=== PATIENT | male | born 1985 | race Caucasian/White ===

== ENCOUNTER 2021-04-15 14:13 | Emergency (ER) | payer SELFPAY ==
[~2021-04-15] VITALS: Ht 188 cm; Wt 81.6 kg
[2021-04-15] MEDS ORDERED: MECLIZINE 25 MG (ANTIVERT) TAB PO ONE (14:30)
--- NOTE | 2021-04-15 14:30 | ED General ---
General Chief Complaint: General Problems/Pain Stated Complaint: GONZALEZ,HIGH BP,DIZZY Source of Information: Patient Exam Limitations: No Limitations History of Present Illness Date Seen by Provider: Apr 15, 2021 Time Seen by Provider: 14:28 Initial Comments To ER with reports of a headache, nausea, dizziness. Symptoms began on 04/13/2020 with a headache. He gets these frequently but typically they go away with some Tylenol Motrin. The headache did go away but he then developed some nausea and then persistent dizziness. Denies any headache currently. No fevers or chills. Timing/Duration: 1-2 Days Severity: Moderate Associated Systoms: Headaches, Nausea/Vomiting Allergies and Home Medications Allergies Coded Allergies: No Known Drug Allergies (Unverified , 04/15/21) Patient Home Medication List Home Medication List Reviewed: Yes Meclizine HCl (Meclizine HCl) 25 Mg Tablet, 25 MG PO TID PRN for DIZZINESS Prescribed by: JI BARCLAY on 04/15/21 153 Prednisone (Prednisone) 20 Mg Tab, 40 MG PO DAILY Prescribed by: JI BARCLAY on 04/15/21 1536 Review of Systems Review of Systems Constitutional: see HPI, dizziness EENTM: see HPI Respiratory: no symptoms reported Cardiovascular: no symptoms reported Genitourinary: no symptoms reported Musculoskeletal: no symptoms reported Skin: no symptoms reported Psychiatric/Neurological: See HPI, Headache Hematologic/Lymphatic: No Symptoms Reported Immunological/Allergic: no symptoms reported Past Nvbysgk-Hdzqih-Tbkahh Hx Patient Social History Tobacco Use?: Yes Tobacco type used: Cigarettes Smoking Status: Current Everyday Smoker Use of E-Cig and/or Vaping dev: No Substance use?: Yes Substance type: Marijuana Alcohol Use?: No Immunizations Up To Date Influenza Vaccine Up-to-Date: No; Not Current First/Initial COVID19 Vaccinat: NONE Second COVID19 Vaccination Kwaku: NONE Third COVID19 Vaccination Date: NONE COVID19 Vaccine Micro Paleontologist: NONE Physical Exam Vital Signs Vital Signs - First Documented 04/15/21 14:20 Temp 36.1 Pulse 82 Resp 20 B/P (MAP) 149/112 (124) Pulse Ox 100 O2 Delivery Room Air Capillary Refill : Height, Weight, BMI Height: '" Weight: lbs. oz. kg; BMI Method: General Appearance: No Apparent Distress, WD/WN Eyes: Bilateral Eye Normal Inspection, Bilateral Eye PERRL, Bilateral Eye EOMI HEENT: PERRL/EOMI, Other (He does have a normal colored tympanic membrane without erythema but with air-fluid levels seen behind the tympanic membrane on the right.) Neck: Full Range of Motion, Normal Inspection Respiratory: No Accessory Muscle Use, No Respiratory Distress Cardiovascular: Regular Rate, Rhythm, Normal Peripheral Pulses Gastrointestinal: Non Tender, Soft Extremity: Normal Capillary Refill, Normal Inspection Neurologic/Psychiatric: Alert, Oriented x3 Progress/Results/Core Measures Suspected Sepsis SIRS Temperature: Pulse: Respiratory Rate: Laboratory Tests 04/15/21 14:34: White Blood Count 4.3 Blood Pressure / Mean: Laboratory Tests 04/15/21 14:34: Creatinine 1.28, Platelet Count 182, Total Bilirubin 0.2 Results/Orders Lab Results Laboratory Tests Test 04/15/21 14:34 Range/Units White Blood Count 4.3 4.3-11.0 10^3/uL Red Blood Count 5.87 H 4.30-5.52 10^6/uL Hemoglobin 18.0 H 13.3-17.7 g/dL Hematocrit 55 H 40-54 % Mean Corpuscular Volume 93 80-99 fL Mean Corpuscular Hemoglobin 31 25-34 pg Mean Corpuscular Hemoglobin Concent 33 32-36 g/dL Red Cell Distribution Width 12.8 10.0-14.5 % Platelet Count 182 130-400 10^3/uL Mean Platelet Volume 10.0 9.0-12.2 fL Immature Granulocyte % (Auto) 0 % Neutrophils (%) (Auto) 52 42-75 % Lymphocytes (%) (Auto) 32 12-44 % Monocytes (%) (Auto) 15 H 0-12 % Eosinophils (%) (Auto) 1 0-10 % Basophils (%) (Auto) 1 0-10 % Neutrophils # (Auto) 2.2 1.8-7.8 10^3/uL Lymphocytes # (Auto) 1.4 1.0-4.0 10^3/uL Monocytes # (Auto) 0.6 0.0-1.0 10^3/uL Eosinophils # (Auto) 0.0 0.0-0.3 10^3/uL Basophils # (Auto) 0.1 0.0-0.1 10^3/uL Immature Granulocyte # (Auto) 0.0 0.0-0.1 10^3/uL Sodium Level 139 135-145 MMOL/L Potassium Level 3.9 3.6-5.0 MMOL/L Chloride Level 103 98-107 MMOL/L Carbon Dioxide Level 25 21-32 MMOL/L Anion Gap 11 5-14 MMOL/L Blood Urea Nitrogen 18 7-18 MG/DL Creatinine 1.28 0.60-1.30 MG/DL Estimat Glomerular Filtration Rate 63 BUN/Creatinine Ratio 14 Glucose Level 61 L 70-105 MG/DL Calcium Level 8.8 8.5-10.1 MG/DL Corrected Calcium 8.7 8.5-10.1 MG/DL Total Bilirubin 0.2 0.1-1.0 MG/DL Aspartate Amino Transf (AST/SGOT) 16 5-34 U/L Alanine Aminotransferase (ALT/SGPT) 12 0-55 U/L Alkaline Phosphatase 46 40-136 U/L Total Protein 7.2 6.4-8.2 GM/DL Albumin 4.1 3.2-4.5 GM/DL My Orders Orders - JI BARCLAY APRN Cbc With Automated Diff (04/15/21 14:26) Comprehensive Metabolic Panel (04/15/21 14:26) Ed Iv/Invasive Line Start (04/15/21 14:26) Meclizine Tablet (Antivert Tablet) (04/15/21 14:30) Ct Angio Head/Neck (04/15/21 14:26) Iohexol Injection (Omnipaque 350 Mg/Ml 1 (04/15/21 15:00) Received Contrast (Hold Metformin- Contr (04/15/21 15:00) Ns (Ivpb) (Sodium Chloride 0.9% Ivpb Bag (04/15/21 15:00) Medications Given in ED Current Medications Medications Dose Ordered Sig/Elie Route Start Time Stop Time Status Last Admin Dose Admin Iohexol 75 ml ONCE ONCE IV 04/15/21 15:00 04/15/21 15:01 DC 04/15/21 15:01 75 ML Meclizine HCl 25 mg ONCE ONCE PO 04/15/21 14:30 04/15/21 14:31 DC 04/15/21 14:37 25 MG Sodium Chloride 100 ml ONCE ONCE IV 04/15/21 15:00 04/15/21 15:01 DC 04/15/21 15:01 80 ML Vital Signs/I&O 04/15/21 14:20 Temp 36.1 Pulse 82 Resp 20 B/P (MAP) 149/112 (124) Pulse Ox 100 O2 Delivery Room Air Capillary Refill : Departure Communication (Admissions) NAME: CLARISSE THAKKAR [facility] REC#: [id number] PT STATUS: REG ER : 1985 PHYSICIAN: JI BARCLAY APRN ADMIT DATE: 04/15/21/ER Draft Date of Exam:04/15/21 CT ANGIO HEAD/NECK PROCEDURE: CT angiography of the head and CT angiography of the neck with and without contrast. TECHNIQUE: Contiguous noncontrast images were obtained from the skull base through the vertex. After intravenous contrast administration, helical CT angiography of the neck was performed. Source data was reformatted into 3D MIP projections. Delayed post contrast acquisition was also obtained. Auto Exposure Controls were utilized during the CT exam to meet ALARA standards for radiation dose reduction. INDICATION: Headache and dizziness. COMPARISON: None available. FINDINGS: CTA NECK: No dissection within the aortic arch. The great vessels of the aorta are widely patent. The bilateral common carotid arteries are normal. No stenosis of the internal carotid arteries per NASCET criteria. The cervical divisions of the internal carotid arteries are normal. Vertebral arteries are codominant and widely patent throughout the neck without dissection or pseudoaneurysm. Lung apices are clear. Thyroid is normal. No cervical lymphadenopathy. Airway is patent. Parotid and submandibular glands are normal in appearance. CTA HEAD: Bilateral distal internal carotid arteries are normal. The M1 and M2 divisions of the middle cerebral arteries are widely patent. There is a tortuous course of the left MCA which accounts for the artificial intelligence suggesting left-sided large vessel occlusion. Anterior cerebral arteries are patent. There is no saccular aneurysm within the anterior circulation. The basilar artery is patent without terminal aneurysm. The posterior cerebral arteries are normal. Dural venous sinuses are patent. IMPRESSION: 1. Normal CTA head and neck. Specifically, no intracranial large vessel occlusion. 2. The left MCA has a tortuous course around the middle cranial fossa which accounts for the apparent large vessel occlusion on computer-aided detection software. Dictated on workstation # [id number] Dict: 04/15/21 1509 Trans: 04/15/21 1528 [id number] Interpreted by: EFREN JOSE MD Electronically signed by: Impression Primary Impression: Dizziness Additional Impressions: Acute effusion of right ear Hypertension Disposition: HOME, SELF-CARE Condition: Stable Departure-Patient Inst. Decision time for Depature: 15:35 Referrals: NO,LOCAL PHYSICIAN (PCP) Primary Care Physician Patient Instructions: Dizziness, Adult ED, Fluid in the Ear ED, High Blood Pressure ED Add. Discharge Instructions: 1. Return to ER for any concerns 2. Follow-up with your doctor next week. Medication as directed. All discharge instructions reviewed with patient and/or family. Voiced understanding. Scripts Lisinopril (Lisinopril) 20 Mg Tablet 20 MG PO DAILY, #30 TAB Prov: JI BARCLAY APRN 04/15/21 Meclizine HCl (Meclizine HCl) 25 Mg Tablet 25 MG PO TID PRN for DIZZINESS, #14 TAB Prov: JI BARCLAY APRN 04/15/21 Prednisone (Prednisone) 20 Mg Tab 40 MG PO DAILY, #8 TAB 0 Refills Prov: JI BARCLAY APRN 04/15/21 JI BARCLAY APRN Apr 15, 2021 14:30
[2021-04-15 14:40] LABS: BASOPHILS # (AUTO) 0.1 10^3/uL (0.0-0.1); BASOPHILS % (AUTO) 1 % (0-10); EOSINOPHILS % (AUTO) 1 % (0-10); HEMATOCRIT 55 % (40-54); LYMPHOCYTES # (AUTO) 1.4 10^3/uL (1.0-4.0); LYMPHOCYTES % (AUTO) 32 % (12-44); MEAN CORPUSCULAR HEMOGLOBIN 31 pg (25-34); MEAN CORPUSCULAR HGB CONC 33 g/dL (32-36); MEAN CORPUSCULAR VOLUME 93 fL (80-99); MONOCYTES # (AUTO) 0.6 10^3/uL (0.0-1.0); MONOCYTES % (AUTO) 15 % (0-12); NEUTROPHILS # (AUTO) 2.2 10^3/uL (1.8-7.8); NEUTROPHILS % (AUTO) 52 % (42-75); PLATELET COUNT 182 10^3/uL (130-400); WHITE BLOOD COUNT 4.3 10^3/uL (4.3-11.0)
[2021-04-15 14:50] LABS: ALBUMIN 4.1 GM/DL (3.2-4.5)
[2021-04-15 14:51] LABS: POTASSIUM 3.9 MMOL/L (3.6-5.0)
[2021-04-15 14:52] LABS: CALCIUM 8.8 MG/DL (8.5-10.1)
[2021-04-15 14:53] LABS: TOTAL PROTEIN 7.2 GM/DL (6.4-8.2)
[2021-04-15 14:55] LABS: BILIRUBIN,TOTAL 0.2 MG/DL (0.1-1.0)
[2021-04-15 14:57] LABS: CREATININE SERUM 1.28 MG/DL (0.60-1.30)
[2021-04-15] MEDS ORDERED: IOHEXOL 350 MG/ML 100 ML (OMNIPAQUE 350) VIAL IV ONE (15:00)
[2021-04-15] MEDS ORDERED: HOLD METFORMIN - RECEIVED CONTRAST 20 ML VIAL IV SCH (15:00)
[2021-04-15] MEDS ORDERED: NS 100 ML (IVPB) BAG IV ONE (15:00)
--- NOTE | 2021-04-15 15:28 | Diagnostic Imaging Report ---
PROCEDURE: CT angiography of the head and CT angiography of the neck with and without contrast. TECHNIQUE: Contiguous noncontrast images were obtained from the skull base through the vertex. After intravenous contrast administration, helical CT angiography of the neck was performed. Source data was reformatted into 3D MIP projections. Delayed post contrast acquisition was also obtained. Auto Exposure Controls were utilized during the CT exam to meet ALARA standards for radiation dose reduction. INDICATION: Headache and dizziness. COMPARISON: None available. FINDINGS: CTA NECK: No dissection within the aortic arch. The great vessels of the aorta are widely patent. The bilateral common carotid arteries are normal. No stenosis of the internal carotid arteries per NASCET criteria. The cervical divisions of the internal carotid arteries are normal. Vertebral arteries are codominant and widely patent throughout the neck without dissection or pseudoaneurysm. Lung apices are clear. Thyroid is normal. No cervical lymphadenopathy. Airway is patent. Parotid and submandibular glands are normal in appearance. CTA HEAD: Bilateral distal internal carotid arteries are normal. The M1 and M2 divisions of the middle cerebral arteries are widely patent. There is a tortuous course of the left MCA which accounts for the artificial intelligence suggesting left-sided large vessel occlusion. Anterior cerebral arteries are patent. There is no saccular aneurysm within the anterior circulation. The basilar artery is patent without terminal aneurysm. The posterior cerebral arteries are normal. Dural venous sinuses are patent. IMPRESSION: 1. Normal CTA head and neck. Specifically, no intracranial large vessel occlusion. 2. The left MCA has a tortuous course around the middle cranial fossa which accounts for the apparent large vessel occlusion on computer-aided detection software. Dictated by: Dictated on workstation # [id number]
[2021-04-15] MEDS ORDERED: MECL-149 PO (15:36)
[2021-04-15] MEDS ORDERED: PRD20T PO (15:36)
[2021-04-15] MEDS ORDERED: LISI20TA26 PO (15:41)
[2021-04-15 16:04] VITALS: BP 150/101
== END 2021-04-15 16:04 | disposition home or self-care (01) ==
LOC: ER 14:22
DX: R42 Dizziness and giddiness (principal); H92.01 Otalgia, right ear; I10 Essential (primary) hypertension; F17.210 Nicotine dependence, cigarettes, uncomplicated
CPT/HCPCS: 36415; 70496; 70498; 80053; 85025